=== PATIENT | male | born 1985 | race African-American/Black ===

== ENCOUNTER 2024-06-30 08:29 | Emergency (ER) | payer OTHER ==
[~2024-06-30] VITALS: Ht 188 cm; Wt 81.0 kg
[2024-06-30 08:47] VITALS: O2SAT 100
[2024-06-30 09:11] LABS: HEMATOCRIT. 43.2 % (42.0-52.0); HEMOGLOBIN. 13.8 g/dL (14.0-18.0); MEAN CORPUSCULAR HEMOGLOBIN 31.3 pg (28.0-32.0); MEAN CORPUSCULAR HGB CONC 31.9 g/dL (31.0-37.0); MEAN CORPUSCULAR VOLUME 98.3 fL (80.0-94.0); MEAN PLATELET VOLUME 9.7 fl (7.4-10.4); PLATELET 142 x1000/uL (130-400); RED CELL DISTRIBUTION WIDTH 13.3 % (11.6-14.6)
[2024-06-30 09:18] LABS: CHLORIDE 102 mEq/L (98-107); POTASSIUM 3.7 mEq/L (3.5-5.1); SODIUM 134 mEq/L (136-145)
[2024-06-30 09:19] LABS: CARBON DIOXIDE 24 mEq/L (21-32)
[2024-06-30 09:20] LABS: CALCIUM 9.8 mg/dL (8.7-10.4)
[2024-06-30 09:24] LABS: CREATININE 1.2 mg/dL (0.6-1.3); GLUCOSE 124 mg/dL (70-105); UREA NITROGEN BLOOD 7 mg/dL (9-23)
[2024-06-30 09:36] LABS: DIFFERENTIAL COMMENT 1
[2024-06-30 09:42] LABS: WHITE BLOOD COUNT 1.9 x1000/uL (4.5-11.0)
[2024-06-30 10:16] LABS: TROPONIN I HIGH SENSITIVITY 27 ng/L (3.0-53)
[2024-06-30 11:03] LABS: CLARITY URINE CLEAR (CLEAR); COLOR URINE YELLOW (YELLOW); GLUCOSE URINE NEGATIVE (NEGATIVE); KETONES URINE 1+ (NEGATIVE); LEUKOCYTE ESTERASE URINE NEGATIVE (NEGATIVE); NITRITE URINE NEGATIVE (NEGATIVE); OCCULT BLOOD URINE NEGATIVE (NEGATIVE); PH URINE 5.5 (4.5-8.0); PROTEIN URINE NEGATIVE (NEGATIVE); SPECIFIC GRAVITY URINE 1.013 (1.005-1.030)
[2024-06-30 11:32] LABS: TROPONIN I HIGH SENSITIVITY 28 ng/L (3.0-53)
[2024-06-30 11:50] VITALS: BP 133/88; PULSE 64; RESP 16; TEMP 36.83628; O2SAT 100
[2024-06-30 13:23] LABS: PLATELET ESTIMATE NORMAL
== END 2024-06-30 12:00 | disposition home or self-care (01) ==
LOC: ER 08:29
DX: R55 Syncope and collapse (principal)
CPT/HCPCS: 36415; 80048; 81003; 84484; 85025; 93005; 99284